=== PATIENT | male | born 1960 | race Two or more races ===

== ENCOUNTER 2024-04-05 17:49 | Inpatient (IN) | payer MEDICARE, OTHER ==
[~2024-04-05] VITALS: Ht 162.6 cm; Wt 66.0 kg
[2024-04-05 19:28] LABS: Basophils # (auto) 0.1 10 ^3/uL (0-0.2); Basophils % (auto) 0.9 % (0.0-2.0); Eosinophils # (auto) 0.3 10 ^3/uL (0-0.8); Eosinophils % (auto) 4.5 % (0.0-7.0); Hematocrit 35.7 % (41.0-53.0); Lymphocytes # (auto) 1.9 10 ^3/uL (0.4-5.4); Lymphocytes % (auto) 24.4 % (10.0-50.0); Mean Corpuscular Hemoglobin 30.3 pg (28.0-32.0); Mean Corpuscular Hgb Conc. 33.6 g/dL (32.0-36.0); Mean Corpuscular Volume 90.2 fL (80.0-100.0); Monocytes # (auto) 0.6 10 ^3/uL (0-1.3); Monocytes % (auto) 8.4 % (0.0-12.0); Neutrophils # (auto) 4.7 10 ^3/uL (1.6-8.6); Neutrophils % (auto) 61.8 % (37.0-80.0); Red Blood Cells 3.96 10^6/uL (4.5-5.90); Red Cell Distribution Width 13.5 % (11.8-14.3); White Blood Cell 7.6 10^3/uL (4.4-10.8)
[2024-04-05 20:00] VITALS: PULSE 76; RESP 16; O2SAT 96
[2024-04-05 20:07] LABS: Alanine Aminotransferase 25 U/L (7-40); Albumin 3.8 g/dL (3.2-4.8); Alkaline Phosphatase 86 U/L (46-116); Anion Gap 4 (5-15); Aspartate Aminotransferase 11 U/L (13-40); BUN/Creatinine Ratio 11.8 (10.0-20.0); Bilirubin, Total 0.3 mg/dL (0.2-1.0); Blood Urea Nitrogen 25 mg/dL (9-23); Calcium 9.1 mg/dL (8.7-10.4); Carbon Dioxide 26 mmol/L (20-30); Chloride 108 mmol/L (98-107); Glucose 146 mg/dL (74-106); Potassium 5.3 mmol/L (3.5-5.1); Sodium 138 mmol/L (136-145)
[2024-04-05 20:08] LABS: Total Protein 6.5 g/dL (5.7-8.2)
[2024-04-05 20:15] LABS: Urine Bacteria None Seen /hpf (None Seen)
[2024-04-05 20:21] LABS: Urine Blood Negative /uL (Negative); Urine Clarity Clear (Clear); Urine Color Light-Yellow (Yellow); Urine Protein, UAD TRACE (Negative); Urine Specific Gravity 1.013 (1.001-1.035); Urine Urobilinogen Normal (Negative); Urine WBC 1 /hpf (0 - 3); Urine pH 5.5 (5.0-9.0)
[2024-04-05] MEDS ORDERED: MORPHINE SULFATE INJ 2 MG/ml SYRG IV PRN (22:00)
[2024-04-05] MEDS ORDERED: ACETAMINOPHEN 325 MG TAB PO PRN (22:00)
[2024-04-05] MEDS ORDERED: DOCUSATE SOD 100 MG CAP PO PRN (22:00)
[2024-04-05] MEDS ORDERED: DEXTROSE (50%) 50ML SYRG IV PRN (22:00)
[2024-04-05] MEDS ORDERED: NITROGLYCERIN 0.4 MG SL TAB SL PRN (22:00)
[2024-04-05] MEDS ORDERED: ONDANSETRON HCL 4 MG/2 ML VIAL IV PRN (22:00)
[2024-04-05] MEDS: SODIUM CHLORIDE 0.9% 1,000 ML IV SCH (22:45)
[2024-04-06] MEDS: ACCU-CHEK COMFORT CURVE STRIP VI SCH ×3 (00:17→16:37)
[2024-04-06 05:18] LABS: Basophils # (auto) 0.1 10 ^3/uL (0-0.2); Basophils % (auto) 1.1 % (0.0-2.0); Eosinophils # (auto) 0.4 10 ^3/uL (0-0.8); Hematocrit 37.8 % (41.0-53.0); Lymphocytes # (auto) 1.5 10 ^3/uL (0.4-5.4); Lymphocytes % (auto) 21.7 % (10.0-50.0); Mean Corpuscular Hgb Conc. 34.5 g/dL (32.0-36.0); Mean Corpuscular Volume 89.9 fL (80.0-100.0); Monocytes # (auto) 0.6 10 ^3/uL (0-1.3); Monocytes % (auto) 7.9 % (0.0-12.0); Neutrophils # (auto) 4.5 10 ^3/uL (1.6-8.6); Neutrophils % (auto) 63.3 % (37.0-80.0); Red Blood Cells 4.21 10^6/uL (4.5-5.90); Red Cell Distribution Width 13.8 % (11.8-14.3); White Blood Cell 7.1 10^3/uL (4.4-10.8)
[2024-04-06 05:34] LABS: Alanine Aminotransferase 25 U/L (7-40); Albumin 3.9 g/dL (3.2-4.8); Alkaline Phosphatase 81 U/L (46-116); Anion Gap 8 (5-15); Aspartate Aminotransferase 15 U/L (13-40); BUN/Creatinine Ratio 11.1 (10.0-20.0); Bilirubin, Total 0.4 mg/dL (0.2-1.0); Blood Urea Nitrogen 20 mg/dL (9-23); Calcium 9.2 mg/dL (8.7-10.4); Carbon Dioxide 25 mmol/L (20-30); Chloride 107 mmol/L (98-107); Glucose 132 mg/dL (74-106); Phosphorus 3.6 mg/dL (2.4-5.1); Potassium 4.6 mmol/L (3.5-5.1); Sodium 140 mmol/L (136-145)
[2024-04-06 05:35] LABS: Total Protein 6.8 g/dL (5.7-8.2)
[2024-04-06 07:20] VITALS: PULSE 79; RESP 14; O2SAT 97
[2024-04-06 09:00] VITALS: BP 131/72; PULSE 85; RESP 20; TEMP 98.3; O2SAT 96
[2024-04-06 09:35] VITALS: BP 131/72; PULSE 85; RESP 20; TEMP 98.3; O2SAT 96
[2024-04-06 11:09] LABS: Protein, Urine 21.4 mg/dL (0.0-11.9)
[2024-04-06 11:11] LABS: Creatinine, Urine 25.98 mg/dL (30.0-125.0)
[2024-04-06] MEDS: SODIUM CHLORIDE 0.9% 1,000 ML IV SCH (12:00)
[2024-04-06 12:30] VITALS: BP 126/76; PULSE 83; RESP 18; TEMP 98.5; O2SAT 96
[2024-04-06] MEDS ORDERED: DEXTROSE (50%) 50ML SYRG IV PRN (13:15)
[2024-04-06] MEDS: InsuLIN REG 1unit/0.01ml Soln (100units/ml) SC SCH ×2 (16:37)
[2024-04-06 17:03] VITALS: BP 143/72; PULSE 80; RESP 20; TEMP 98.3; O2SAT 98
[2024-04-06] MEDS ORDERED: TAMS0.4C36 PO (17:19)
[2024-04-06] MEDS ORDERED: LISI10TA34 PO (17:19)
[2024-04-06] MEDS ORDERED: FLUO-126 PO (17:19)
[2024-04-06] MEDS ORDERED: OMEP-448 PO (17:19)
[2024-04-06] MEDS ORDERED: FINE10TA PO (17:19)
[2024-04-06] MEDS ORDERED: ATOR40TA52 PO (17:19)
[2024-04-06] MEDS ORDERED: AMLO1TAB23 PO (17:19)
[2024-04-06] MEDS ORDERED: TRAZ-227 PO (17:19)
[2024-04-06] MEDS ORDERED: INSU1INJ19 SC (17:26)
[2024-04-06 20:00] VITALS: O2SAT 98
[2024-04-06] MEDS: ATORVASTATIN 20 MG TAB PO SCH (21:14)
[2024-04-07] VITALS (8 sets, daily range): BP systolic 125–153; BP diastolic 68–82; PULSE 62–85; RESP 14–18; TEMP 97.4–98; O2SAT 93–98
[2024-04-07 06:50] LABS: Basophils # (auto) 0.1 10 ^3/uL (0-0.2); Basophils % (auto) 0.8 % (0.0-2.0); Eosinophils # (auto) 0.4 10 ^3/uL (0-0.8); Eosinophils % (auto) 4.8 % (0.0-7.0); Hematocrit 37.8 % (41.0-53.0); Hemoglobin 12.9 g/dL (13.5-17.5); Lymphocytes # (auto) 1.4 10 ^3/uL (0.4-5.4); Lymphocytes % (auto) 18.9 % (10.0-50.0); Mean Corpuscular Hemoglobin 30.7 pg (28.0-32.0); Mean Corpuscular Hgb Conc. 34.2 g/dL (32.0-36.0); Mean Corpuscular Volume 89.8 fL (80.0-100.0); Monocytes # (auto) 0.6 10 ^3/uL (0-1.3); Monocytes % (auto) 7.5 % (0.0-12.0); Neutrophils # (auto) 5.2 10 ^3/uL (1.6-8.6); Nucleated Red Blood Cells % 0.1 %; Red Cell Distribution Width 13.9 % (11.8-14.3); White Blood Cell 7.7 10^3/uL (4.4-10.8)
[2024-04-07 06:55] LABS: Anion Gap 7 (5-15); Carbon Dioxide 27 mmol/L (20-30); Chloride 105 mmol/L (98-107); Potassium 4.4 mmol/L (3.5-5.1); Sodium 139 mmol/L (136-145)
[2024-04-07 06:56] LABS: Calcium 9.4 mg/dL (8.7-10.4)
[2024-04-07 07:00] LABS: INR 0.98 (0.9-1.15); Partial Thromboplastin Time 28.7 SEC (24.5-34.5); Prothrombin Time 10.4 sec (9.3-11.8)
[2024-04-07 07:01] LABS: BUN/Creatinine Ratio 13.4 (10.0-20.0); Blood Urea Nitrogen 20 mg/dL (9-23); Glucose 126 mg/dL (74-106)
[2024-04-07] MEDS: ASPirin 81 mg TAB PO SCH (10:41)
[2024-04-07] MEDS ORDERED: ALFU1TAB15 PO (11:30)
[2024-04-07] MEDS ORDERED: ASPI-498 OR (11:30)
[2024-04-07] MEDS ORDERED: CETI-83 OR (11:30)
[2024-04-07] MEDS ORDERED: KETO2CRE4 EX (11:32)
[2024-04-07] MEDS ORDERED: CHOL20007 PO (11:32)
[2024-04-07] MEDS ORDERED: AZITHROMYCIN 250 MG TAB PO ONE (15:00)
[2024-04-08 01:00] VITALS: BP 126/74; PULSE 83; RESP 18; O2SAT 95
[2024-04-08 05:00] VITALS: BP 113/76; PULSE 76; RESP 17; TEMP 98.1; O2SAT 94
[2024-04-08] MEDS: AZITHROMYCIN 250 MG TAB PO SCH (08:31)
[2024-04-08 09:00] VITALS: BP 145/78; PULSE 84; RESP 14; TEMP 98.2; O2SAT 98
[2024-04-08 10:24] LABS: Chloride 104 mmol/L (98-107); Potassium 4.5 mmol/L (3.5-5.1); Sodium 136 mmol/L (136-145)
[2024-04-08 10:25] LABS: Anion Gap 6 (5-15); Carbon Dioxide 26 mmol/L (20-30)
[2024-04-08 10:26] LABS: Calcium 9.5 mg/dL (8.7-10.4)
[2024-04-08 10:30] LABS: Blood Urea Nitrogen 21 mg/dL (9-23); Glucose 189 mg/dL (74-106)
[2024-04-08 13:00] VITALS: BP 110/74; PULSE 90; RESP 16; TEMP 97.6; O2SAT 98
[2024-04-08 17:00] VITALS: BP 135/86; PULSE 68; RESP 18; TEMP 97.6; O2SAT 97
[2024-04-08 21:00] VITALS: BP 124/78; PULSE 89; RESP 18; TEMP 98.3; O2SAT 94
[2024-04-09 01:00] VITALS: BP 125/69; PULSE 80; RESP 18; TEMP 98.1; O2SAT 96
[2024-04-09 05:00] VITALS: BP 119/70; PULSE 77; RESP 18; O2SAT 94
[2024-04-09 05:31] LABS: Chloride 103 mmol/L (98-107); Potassium 3.9 mmol/L (3.5-5.1); Sodium 137 mmol/L (136-145)
[2024-04-09 05:32] LABS: Anion Gap 9 (5-15); Carbon Dioxide 25 mmol/L (20-30)
[2024-04-09 05:33] LABS: Calcium 9.3 mg/dL (8.7-10.4)
[2024-04-09 05:38] LABS: BUN/Creatinine Ratio 12.9 (10.0-20.0); Blood Urea Nitrogen 24 mg/dL (9-23); Glucose 140 mg/dL (74-106)
[2024-04-09 09:00] VITALS: BP 138/72; PULSE 78; RESP 18; TEMP 98; O2SAT 97
[2024-04-09 12:50] VITALS: BP_SYST 120; BP_SYST 141; BP_DIAS 72; BP_DIAS 79; PULSE 80; PULSE 83; RESP 18; RESP 20; TEMP 98.1; O2SAT 98
[2024-04-09 17:14] VITALS: BP 135/79; PULSE 87; RESP 20; TEMP 98; O2SAT 96
== END 2024-04-09 18:45 | disposition home or self-care (01) | DRG 70 ==
LOC: ER 17:49 → OVERFLOW 22:06 → WEST WING 04-06 09:06
PROVIDERS: ADMIT Internal Medicine Pulmonary Disease; ATTEND Internal Medicine
DX: G93.41 Metabolic encephalopathy (principal); N17.0 Acute kidney failure with tubular necrosis; I69.351 Hemiplegia and hemiparesis following cerebral infarction affecting right dominant side; E11.22 Type 2 diabetes mellitus with diabetic chronic kidney disease; E87.5 Hyperkalemia; I12.9 Hypertensive chronic kidney disease with stage 1 through stage 4 chronic kidney disease, or unspecified chronic kidney disease; J20.9 Acute bronchitis, unspecified; N18.32 Chronic kidney disease, stage 3b; F10.10 Alcohol abuse, uncomplicated; G40.209 Localization-related (focal) (partial) symptomatic epilepsy and epileptic syndromes with complex partial seizures, not intractable, without status epilepticus; Y90.9 Presence of alcohol in blood, level not specified; D64.9 Anemia, unspecified; N40.0 Benign prostatic hyperplasia without lower urinary tract symptoms; Z87.442 Personal history of urinary calculi; Z90.5 Acquired absence of kidney; Z79.4 Long term (current) use of insulin; Z83.3 Family history of diabetes mellitus; Z79.82 Long term (current) use of aspirin; Z79.899 Other long term (current) drug therapy; Z82.49 Family history of ischemic heart disease and other diseases of the circulatory system; I69.320 Aphasia following cerebral infarction
CPT/HCPCS: 36415; 70450; 70551; 71045; 76775; 80048; 80053; 81001; 82550; 82570; 82607; 82962; 83036; 83735; 84100; 84156; 84300; 84443; 84484; 85025; 85610; 85730; 93005; 95819; 97110; 97116; 97163; 97530; G0378; J1815

== ENCOUNTER → 2024-04-20 | Outpatient (CLI) | payer MEDICARE, OTHER ==
[~2024-04-20] MED LIST: ALFU1TAB15 PO; AMLO1TAB23 PO; ASPI-498 OR; ATOR40TA52 PO; CETI-83 OR; CHOL20007 PO; FINE10TA PO; FLUO-126 PO; INSU1INJ19 SC; KETO2CRE4 EX; LISI10TA34 PO; OMEP-448 PO; TAMS0.4C36 PO; TRAZ-227 PO
[2024-04-20 11:51] LABS: Anion Gap 4 (5-15); Carbon Dioxide 30 mmol/L (20-30); Chloride 104 mmol/L (98-107); Potassium 4.5 mmol/L (3.5-5.1); Sodium 138 mmol/L (136-145)
[2024-04-20 11:52] LABS: Calcium 9.5 mg/dL (8.7-10.4)
[2024-04-20 11:57] LABS: BUN/Creatinine Ratio 13.3 (10.0-20.0); Blood Urea Nitrogen 20 mg/dL (9-23); Glucose 127 mg/dL (74-106)
== END | disposition home or self-care (01) ==
LOC: LAB 10:37
PROVIDERS: ATTEND Internal Medicine
DX: E11.9 Type 2 diabetes mellitus without complications (principal); I10 Essential (primary) hypertension
CPT/HCPCS: 36415; 80048

== ENCOUNTER 2024-05-06 09:13 | Emergency (ER) | payer MEDICARE, OTHER ==
[~2024-05-06] VITALS: Ht 162.6 cm; Wt 65.4 kg
[~2024-05-06 09:13] MED LIST changes: -TAMS0.4C36 PO; +TAMS0.4C39 PO
[2024-05-06] MEDS: ACETAMINOPHEN 500 MG TAB PO ONE (10:16)
[2024-05-06] MEDS: ONDANSETRON HCL 4 MG/2 ML VIAL IM ONE (10:17)
[2024-05-06 10:31] LABS: Urine Bacteria None Seen /hpf (None Seen)
[2024-05-06 10:38] LABS: Basophils # (auto) 0.1 10 ^3/uL (0-0.2); Basophils % (auto) 0.8 % (0.0-2.0); Eosinophils # (auto) 0.1 10 ^3/uL (0-0.8); Eosinophils % (auto) 1.6 % (0.0-7.0); Hematocrit 42.8 % (41.0-53.0); Hemoglobin 14.2 g/dL (13.5-17.5); Lymphocytes # (auto) 1.1 10 ^3/uL (0.4-5.4); Lymphocytes % (auto) 15.8 % (10.0-50.0); Mean Corpuscular Hemoglobin 29.7 pg (28.0-32.0); Mean Corpuscular Hgb Conc. 33.2 g/dL (32.0-36.0); Mean Corpuscular Volume 89.5 fL (80.0-100.0); Monocytes # (auto) 0.7 10 ^3/uL (0-1.3); Monocytes % (auto) 9.5 % (0.0-12.0); Neutrophils # (auto) 5.2 10 ^3/uL (1.6-8.6); Neutrophils % (auto) 72.3 % (37.0-80.0); Platelet Count (auto) 264 10^3/uL (140-450); Red Blood Cells 4.78 10^6/uL (4.5-5.90); Red Cell Distribution Width 14.1 % (11.8-14.3); White Blood Cell 7.2 10^3/uL (4.4-10.8)
[2024-05-06 10:41] LABS: Urine Blood 1+ /uL (Negative); Urine Clarity Clear (Clear); Urine Protein, UAD 2+ (Negative); Urine Specific Gravity 1.012 (1.001-1.035); Urine Urobilinogen Normal (Negative); Urine WBC <1 /hpf (0 - 3)
[2024-05-06 10:43] LABS: Urine Color Light-Yellow (Yellow)
[2024-05-06 10:51] LABS: Chloride 103 mmol/L (98-107); Potassium 4.3 mmol/L (3.5-5.1); Sodium 135 mmol/L (136-145)
[2024-05-06 10:52] LABS: Anion Gap 6 (5-15); Carbon Dioxide 26 mmol/L (20-30)
[2024-05-06 10:53] LABS: Calcium 9.9 mg/dL (8.7-10.4)
[2024-05-06 10:57] LABS: BUN/Creatinine Ratio 11.2 (10.0-20.0); Blood Urea Nitrogen 18 mg/dL (9-23); Glucose 131 mg/dL (74-106)
[2024-05-06 11:56] LABS: COVID19 ANTIGEN SOFIA FIA POSITIVE (NEGATIVE)
[2024-05-06 11:57] LABS: Rapid Influenza A Negative (Negative); Rapid Influenza B Negative (Negative)
[2024-05-06] MEDS ORDERED: BENZ100C97 PO (12:08)
[2024-05-06] MEDS ORDERED: PROM1SOL4 PO (12:08)
[2024-05-06] MEDS ORDERED: ACET500T58 PO (12:08)
[2024-05-06] MEDS ORDERED: AZIT-43 PO (12:08)
[2024-05-06 12:15] VITALS: BP 116/71; PULSE 84; RESP 18; TEMP 99.4; O2SAT 96
== END 2024-05-06 12:11 | disposition home or self-care (01) ==
LOC: ER 09:13
DX: U07.1 COVID-19 (principal); E11.22 Type 2 diabetes mellitus with diabetic chronic kidney disease; I12.9 Hypertensive chronic kidney disease with stage 1 through stage 4 chronic kidney disease, or unspecified chronic kidney disease; N18.9 Chronic kidney disease, unspecified
CPT/HCPCS: 36415; 71046; 80048; 81001; 85025; 87426; 87804; 96372; 99284; J2405

== ENCOUNTER → 2024-05-30 | Outpatient (CLI) | payer MEDICARE ==
[~2024-05-30] MED LIST changes: +ACET500T58 PO; +AZIT-43 PO; +BENZ100C97 PO; +PROM1SOL4 PO
[2024-05-30 11:11] LABS: Basophils # (auto) 0.1 10 ^3/uL (0-0.2); Eosinophils # (auto) 0.2 10 ^3/uL (0-0.8); Monocytes # (auto) 0.7 10 ^3/uL (0-1.3)
[2024-05-30 11:15] LABS: Basophils % (auto) 0.9 % (0.0-2.0); Eosinophils % (auto) 2.6 % (0.0-7.0); Hematocrit 39.9 % (41.0-53.0); Hemoglobin 13.5 g/dL (13.5-17.5); Lymphocytes # (auto) 1.8 10 ^3/uL (0.4-5.4); Lymphocytes % (auto) 22.5 % (10.0-50.0); Mean Corpuscular Hemoglobin 29.9 pg (28.0-32.0); Mean Corpuscular Hgb Conc. 33.8 g/dL (32.0-36.0); Mean Corpuscular Volume 88.4 fL (80.0-100.0); Monocytes % (auto) 8.3 % (0.0-12.0); Neutrophils # (auto) 5.2 10 ^3/uL (1.6-8.6); Neutrophils % (auto) 65.7 % (37.0-80.0); Platelet Count (auto) 429 10^3/uL (140-450); Red Blood Cells 4.51 10^6/uL (4.5-5.90); Red Cell Distribution Width 14.7 % (11.8-14.3); White Blood Cell 7.9 10^3/uL (4.4-10.8)
[2024-05-30 11:33] LABS: Chloride 107 mmol/L (98-107); Potassium 4.7 mmol/L (3.5-5.1); Sodium 139 mmol/L (136-145)
[2024-05-30 11:34] LABS: Anion Gap 4 (5-15); Carbon Dioxide 28 mmol/L (20-30)
[2024-05-30 11:35] LABS: Calcium 9.4 mg/dL (8.7-10.4)
[2024-05-30 11:40] LABS: Blood Urea Nitrogen 22 mg/dL (9-23); Glucose 104 mg/dL (74-106)
[2024-05-30 11:45] LABS: Creatinine, Urine 87.11 mg/dL (30.0-125.0)
== END | disposition home or self-care (01) ==
LOC: LAB 10:27
PROVIDERS: ATTEND Internal Medicine
DX: E11.22 Type 2 diabetes mellitus with diabetic chronic kidney disease (principal); N18.31 Chronic kidney disease, stage 3a; E11.69 Type 2 diabetes mellitus with other specified complication; D64.9 Anemia, unspecified
CPT/HCPCS: 36415; 80048; 82043; 82570; 85025

== ENCOUNTER → 2024-09-24 | Outpatient (CLI) | payer MEDICARE ==
[2024-09-24 10:42] LABS: Urine Bacteria None Seen /hpf (None Seen)
[2024-09-24 11:08] LABS: Basophils # (auto) 0.1 10 ^3/uL (0-0.2); Basophils % (auto) 1.2 % (0.0-2.0); Eosinophils # (auto) 0.1 10 ^3/uL (0-0.8); Eosinophils % (auto) 1.7 % (0.0-7.0); Hematocrit 44.6 % (41.0-53.0); Lymphocytes # (auto) 1.6 10 ^3/uL (0.4-5.4); Mean Corpuscular Hemoglobin 29.6 pg (28.0-32.0); Mean Corpuscular Hgb Conc. 33.6 g/dL (32.0-36.0); Mean Corpuscular Volume 88.1 fL (80.0-100.0); Monocytes # (auto) 0.4 10 ^3/uL (0-1.3); Monocytes % (auto) 4.9 % (0.0-12.0); Neutrophils # (auto) 6.3 10 ^3/uL (1.6-8.6); Neutrophils % (auto) 73.2 % (37.0-80.0); Nucleated Red Blood Cells % 0.1 %; Platelet Count (auto) 309 10^3/uL (140-450); Red Blood Cells 5.06 10^6/uL (4.5-5.90); Red Cell Distribution Width 15.6 % (11.8-14.3); White Blood Cell 8.6 10^3/uL (4.4-10.8)
[2024-09-24 11:16] LABS: Alanine Aminotransferase 26 U/L (7-40); Albumin 4.5 g/dL (3.2-4.8); Alkaline Phosphatase 111 U/L (46-116); Anion Gap 6 (5-15); Aspartate Aminotransferase 17 U/L (13-40); BUN/Creatinine Ratio 13.8 (10.0-20.0); Bilirubin, Total 0.5 mg/dL (0.2-1.0); Blood Urea Nitrogen 20 mg/dL (9-23); Carbon Dioxide 29 mmol/L (20-31); Chloride 104 mmol/L (98-107); Sodium 139 mmol/L (136-145); Total Protein 7.8 g/dL (5.7-8.2)
[2024-09-24 11:17] LABS: Glucose 114 mg/dL (74-106)
[2024-09-24 11:54] LABS: Free T4 (Free Thyroxine) 1.2 ng/dL (0.89-1.76)
[2024-09-24 11:59] LABS: Urine Blood Negative /uL (Negative); Urine Clarity Clear (Clear); Urine Color Light-Yellow (Yellow); Urine Protein, UAD 1+ (Negative); Urine Specific Gravity 1.007 (1.001-1.035); Urine Squamous Epithelial Cell None Seen /hpf (<5); Urine Urobilinogen Normal (Negative); Urine WBC <1 /hpf (0 - 3)
[2024-09-24 12:04] LABS: Protein, Urine 81.9 mg/dL (1-14)
== END | disposition home or self-care (01) ==
LOC: LAB 10:26
PROVIDERS: ATTEND Internal Medicine
DX: I12.9 Hypertensive chronic kidney disease with stage 1 through stage 4 chronic kidney disease, or unspecified chronic kidney disease (principal); E11.22 Type 2 diabetes mellitus with diabetic chronic kidney disease; N18.30 Chronic kidney disease, stage 3 unspecified
CPT/HCPCS: 36415; 80053; 81001; 82043; 82306; 82607; 83036; 84156; 84439; 84443; 85025; 87902

== ENCOUNTER 2024-11-09 09:22 | Inpatient (IN) | payer MEDICARE, MEDICAID ==
[~2024-11-09] VITALS: Ht 162.6 cm; Wt 68.0 kg
--- NOTE | 2024-11-09 10:08 | ED.PDOC ---
History of Present Illness HPI Comments 64-year-old male came in because of headache right flank pain for about three days. Along with flank pain he has been having fever on and off with infrequent swelling of the right foot. Patient does have a history of hypertension diabetes CVA for which his right side along with his speech has been affected. Blood pressure on arrival was 148/77 heart rate of 84 with a blood sugar 132. Chief Complaint: Flank Pain Time Seen by MD: 09:30 Primary Care Provider: VINAY Reviewed Notes: Nurses Notes, Medications, Allergies Allergies: Coded Allergies: NO KNOWN ALLERGIES (Unverified , 04/05/24) Home Meds Active Scripts Acetaminophen (Acetaminophen) 500 Mg Tab, 500 MG PO QIDP for 10 Days, #40 TAB 0 Refills Prov:TAMI AREVALO NP 05/06/24 Promethazine-Dm (Promethazine Dm 6.25-15 mg/5Ml) 1 Anuradha Anuradha, 5 ML PO TIDP PRN for 10 Days, #150 ML 0 Refills Prov:TAMI AREVALO NP 05/06/24 Benzonatate (Benzonatate) 100 Mg Cap, 1 CAP PO TID for 10 Days, #30 CAP 0 Refills Prov:TAMI AREVALO NP 05/06/24 Azithromycin (Azithromycin) 250 Mg Tab, 250 MG PO DAILY MDD 500 for 5 Days, #6 TAB 0 Refills 2 TABLETS ORALLY ON DAY ONE, THEN 1 TABLET ORALLY DAILY FOR 4 DAYS Prov:TAMI AREVALO NP 05/06/24 Reported Medications Cholecalciferol (VITAMIN D3) 2,000 Unit Tab, 1 TAB PO DAILY, #30 TAB 5 Refills 04/07/24 Ketoconazole (Ketoconazole) 2 % Cre, 2 % EX, CRE 04/07/24 Cetirizine Hcl (EQ ALLERGY RELIEF) 10 Mg Tab, 10 MG OR, TAB 04/07/24 Alfuzosin Hydrochloride (ALFUZOSIN HCL ER) 10 Mg Tab, 10 MG PO, TAB 04/07/24 Aspirin (ASPIRIN 81) 81 Mg Tab, 81 MG OR, TAB 04/07/24 Insulin Glargine (Basaglar Kwikpen) 100 Unit/Ml Inj, SC DAILY, INJ 04/06/24 Omeprazole (Omeprazole Dr) 40 Mg Cap, 40 MG PO, CAP 04/06/24 Lisinopril (Lisinopril) 10 Mg Tab, 10 MG PO DAILY, MG 04/06/24 Atorvastatin Calcium (ATORVASTATIN CALCIUM) 40 Mg Tab, 1 TAB PO DAILY, TAB 04/06/24 Amlodipine Besylate (Amlodipine Besylate) 10 Mg Tab, 10 MG PO DAILY, TAB 04/06/24 Finerenone (Kerendia) 10 Mg Tab, 10 MG PO DAILY, TAB 04/06/24 Tamsulosin Hcl (Tamsulosin Hcl) 0.4 Mg Cap, 0.4 MG PO QPM, MG 04/06/24 Fluoxetine Hcl (Fluoxetine Hcl) 10 Mg Cap, 10 MG PO DAILY, MG 04/06/24 Trazodone Hcl (Trazodone Hcl) 50 Mg Tab, 50 MG PO HS, MG 04/06/24 Information Source: Relative (Sibling) Mode of Arrival: Wheelchair Severity: Moderate Timing: Days Duration: Since onset Past Medical History PAST MEDICAL HISTORY: CVA, DM, HTN Surgical History: Denies all surgeries Family History Family History: Reviewed,noncontributory to illness, No family hx of Cancer, No family hx of DM, No family hx of Heart penelope, No family hx of HTN, No family hx ofKidney penelope, No family hx of Liver penelope, No family hx of Lung penelope, No family hx of Stroke Social History Smoker: Non-Smoker Alcohol: Denies ETOH Use Drugs: Denies Drug Use Lives In: Home Constitutional: reports: fever; denies: chills, diaphoresis, fatigue, malaise, sweats, weakness, others EENTM: denies: blurred vision, double vision, ear bleeding, ear discharge, ear drainage, ear pain, ear ringing, eye pain, eye redness, hearing loss, mouth pain, mouth swelling, nasal discharge, nose bleeding, nose congestion, nose pain, photophobia, tearing, throat pain, throat swelling, voice changes, others Respiratory: denies: cough, hemoptysis, orthopnea, SOB at rest, shortness of breath, SOB with excertion, stridor, wheezing, others Cardiovascular: denies: chest pain, dizzy spells, diaphoresis, Dyspnea on exertion, edema, irregular heart beat, left arm pain, lightheadedness, palpitations, PND, syncope, others Gastrointestinal: denies: abdomen distended, abdominal pain, blood streaked bowels, constipated, diarrhea, dysphagia, difficulty swallowing, hematemesis, melena, nausea, poor appetite, poor fluid intake, rectal bleeding, rectal pain, vomiting, others Genitourinary: reports: flank pain (r); denies: burning, dysuria, frequency, hematuria, incontinence, penile discharge, penile sore, pain, testicle pain, testicle swelling, urgency, others Neurological: reports: headache; denies: dizziness, fainting, left sided numbness, left sided weakness, numbness, paresthesia, pre-existing deficit, right sided numbness, right sided weakness, seizure, speech problems, tingling, tremors, weakness, others Musculoskeletal: denies: back pain, gout, joint pain, joint swelling, muscle pain, muscle stiffness, neck pain, others Integumetry: denies: bruises, change in color, change in hair/nails, dryness, laceration, lesions, lumps, rash, wounds, others Allergic/Immunocompromised: denies: Difficulty Healing, Frequent Infections, Hives, Itching, others Hematologic/Lymphatic: denies: anemia, blood clots, easy bleeding, easy bruising, swollen glands, others Psychiatric: denies: anxiety, bipolar disorder, depression, hopeless, panic disorder, schizophrenia, sleepless, suicidal, others Physical Exam General Appearance: Moderate Distress HEENT: Normal ENT Inspection, Pharynx Normal, TMs Normal Neck: Full Range of Motion, Non-Tender, Normal, Normal Inspection Respiratory: Chest Non-Tender, Lungs Clear, No Accessory Muscle Use, No Respiratory Distress, Normal Breath Sounds Cardiovascular: No Edema, No JVD, No Murmur, No Gallop, Normal Peripheral Pulses, Regular Rate/Rhythm Breast Exam: Deferred Gastrointestinal: No Organomegaly, Non Tender, No Pulsatile Mass, Normal Bowel Sounds, Soft Genitalia: Deferred Pelvic: Deferred Rectal: Deferred Extremities: Swelling (Right foot) Musculoskeletal : Apperance: Normal Neurologic: Alert, Speech Problem Cerebellar Function: NOT DONE Reflexes: NOT DONE Skin: Dry, Normal Color, Warm Peripheral Pulses: 3+ Radial (R), 3+ Radial (L) Lymphatic: No Adenopathy Was a procedure done? Was a procedure done?: No Differential Dx Considerations may include: Anemia Electrolyte imbalance X-Ray, Labs, Meds, VS Lab Test 11/09/24 09:32 Range/Units POC Glucose 132 H 70-106 mg/dl Patient alert. Complaining of flank pain. Possible sepsis from urine. Blood sugar is within normal limits. Blood pressure slightly high. History of CVA. Reviewed his history. Family at bedside. Explained to the family. Continue to monitor. Time of 1ST Reevaluation: 10:02 Reevaluation 1ST: Unchanged Patient Education/Counseling: Diagnosis, Treatment, Prognosis Family Education/Counseling: No Family Present Departure 1 Departure Time of Disposition: 10:07 Impression: Primary Impression: Uncontrolled diabetes mellitus Qualified Codes: E13.65 - Other specified diabetes mellitus with hyperglycemia Additional Impression: Hypertension Qualified Codes: I10 - Essential (primary) hypertension Disposition: ADMITTED INPATIENT Admit to: Med Surg Condition: Guarded Critical Care Note Critical Care Time?: No Stability Stability form required: No Heart Score Heart Score: Heart Score Response (Comments) Value History Slightly Suspicious 0 EKG Normal 0 Age >65 2 Risk Factors >3 or Hx ASHD 2 Troponin Normal limit 0 Total 4 GABE WOLFE MD Nov 09, 2024 10:08
[2024-11-09 10:36] LABS: Urine Bacteria None Seen /hpf (None Seen)
[2024-11-09 10:52] LABS: Urine Blood TRACE /uL (Negative); Urine Clarity Clear (Clear); Urine Color Light-Yellow (Yellow); Urine Hyaline Cast FEW /lpf (0 - 2); Urine Mucus FEW (None Seen); Urine Protein, UAD 1+ (Negative); Urine Specific Gravity 1.015 (1.001-1.035); Urine Squamous Epithelial Cell FEW /hpf (<5); Urine Urobilinogen Normal (Negative); Urine WBC < 1 /HPF (0-3)
[2024-11-09 11:16] LABS: Basophils # (auto) 0.1 10 ^3/uL (0-0.2); Basophils % (auto) 0.9 % (0.0-2.0); Eosinophils # (auto) 0.1 10 ^3/uL (0-0.8); Eosinophils % (auto) 1.8 % (0.0-7.0); Hematocrit 43.9 % (41.0-53.0); Hemoglobin 14.6 g/dL (13.5-17.5); Lymphocytes # (auto) 1.7 10 ^3/uL (0.4-5.4); Lymphocytes % (auto) 20.9 % (10.0-50.0); Mean Corpuscular Hemoglobin 29.3 pg (28.0-32.0); Mean Corpuscular Hgb Conc. 33.2 g/dL (32.0-36.0); Mean Corpuscular Volume 88.1 fL (80.0-100.0); Monocytes # (auto) 0.5 10 ^3/uL (0-1.3); Monocytes % (auto) 6.1 % (0.0-12.0); Neutrophils # (auto) 5.8 10 ^3/uL (1.6-8.6); Neutrophils % (auto) 70.3 % (37.0-80.0); Platelet Count (auto) 309 10^3/uL (140-450); Red Blood Cells 4.98 10^6/uL (4.5-5.90); Red Cell Distribution Width 15.1 % (11.8-14.3); White Blood Cell 8.2 10^3/uL (4.4-10.8)
[2024-11-09 11:33] LABS: Chloride 103 mmol/L (98-107); Potassium 4.6 mmol/L (3.5-5.1); Sodium 139 mmol/L (136-145)
[2024-11-09 11:34] LABS: Anion Gap 8 (5-15); Calcium 10.1 mg/dL (8.7-10.4); Carbon Dioxide 28 mmol/L (20-31)
[2024-11-09 11:40] LABS: Blood Urea Nitrogen 24 mg/dL (9-23); Glucose 115 mg/dL (74-106)
[2024-11-09] MEDS ORDERED: ONDANSETRON HCL 4 MG/2 ML VIAL IV PRN (15:00)
[2024-11-09] MEDS ORDERED: DEXTROSE (50%) 50ML SYRG IV PRN (15:15)
--- NOTE | 2024-11-09 15:26 | DVH ---
CT ABDOMEN AND PELVIS WITHOUT CONTRAST CLINICAL HISTORY: pain TECHNIQUE: Multiple contiguous axial images of the abdomen and pelvis without intravenous contrast. The images were reformatted degenerate coronal and sagittal reconstructions. All CT scans at this medical facility are performed using dose modulation techniques as appropriate t o a performed exam including the following:Automated exposure control was utilized; adjustment of the MA and/or KV according to patient size; and use of iterative reconstruction technique. Radiation Dose Information: CT Dose: CTDI volume is 16 mGy. Dose-length product is 883 mGy*cm Comparison: None FINDINGS: Evaluation of the abdomen and pelvis is limited without intravenous contrast. There are postsurgical changes in the upper pole of the right kidney likely related partial nephrecto my. There is no evidence of nephrolithiasis or hydronephrosis. There is no discrete renal lesion. The liver, gallbladder, pancreas, adrenal glands, and spleen appear within normal limits. There is no gross evidence of abdominal lymphadenopathy. There is no free fluid or free air. The stomach grossly appears unremarkable. The small and large bowel loops demonstrate normal caliber . There are scattered diverticula in the distal colon without evidence of acute diverticulitis. A no rmal-appearing appendix is seen in the right lower quadrant abdomen. The abdominal aorta and IVC appear within normal limits. The prostate gland is enlarged. The bladder demonstrates circumferential wall thickening likely rela milady to chronic outlet obstruction. . There is no gross evidence of a pelvic mass. There is no free f luid collection. There is a small fat containing left inguinal hernia. Lung bases are clear. There is no acute osseous abnormality. IMPRESSION: 1. There is no acute process in the abdomen and pelvis. 2. Postsurgical changes related to partial right upper pole nephrectomy. 3. Prostatomegaly with likely chronic bladder outlet obstruction. 4. Distal colon diverticulosis without evidence of acute diverticulitis. HS:Y
--- NOTE | 2024-11-09 15:28 | DVH ---
CHEST RADIOGRAPH Indication: pain Technique: Single frontal view of the chest was obtained Comparison: XY CHEST PORTABLE on DOS: 04/05/24 FINDINGS: Lines and Tubes: None Lungs: No focal consolidation. Pleura: No effusion.No pneumothorax. Cardiomediastinal contours: Unremarkable Pulmonary vasculature: Within normal limits. Bones: No acute osseous abnormality. IMPRESSION: 1. No acute cardiopulmonary disease. HS:Y
--- NOTE | 2024-11-09 15:31 | DVH ---
LEFT lower extremity venous duplex Clinical History: swelling Comparison: None Technique: Duplex Doppler evaluation of the deep venous systems of both lower extremities from the common femora l veins to the popliteal veins including color Doppler and spectral/pulsed waveform analysis was perf ormed. Findings: LEFT SIDE: The common femoral vein demonstrates appropriate compressibility and waveform variability. There is compressibility/patency of the great saphenous vein at the proximal thigh. The femoral vein demonstrates appropriate compressibility and waveform variability. The deep femoral vein demonstrates appropriate compressibility and waveform variability. The popliteal vein demonstrates appropriate compressibility and waveform variability. There is normal compressibility at the tibioperoneal trunk. Impression: 1. No left femoropopliteal venous thrombosis. HS:Y
--- NOTE | 2024-11-09 15:49 | DVHHP2 ---
History of Present Illness Reason for Visit: Left-sided flank pain History of Present Illness Rick Woodard is a 64-year-old male with past medical history of hypertension, diabetes type 2, CVA with right-sided deficits in 2018, nephrolithiasis, CKD, and partial right nephrectomy who presents to the ED with left-sided flank pain, right lower extremity swelling, fever, headache, and back pain x2 days. Patient complains of back pain 8/10 intermittent and pressure- like. Patient reports no recent trauma or injury. Daughter at the bedside and states that he is wheelchair-bound. Patient denies any chest pain, shortness of breath, abdominal pain, nausea, vomiting, diarrhea, dizziness, chills, or dy suria symptoms. Cardiovascular: HTN [employer]: CVA Renal/: Chronic renal insuff Endocrine: Diabetes Past Medical History Nephrolithiasis Past Surgical History: Other (Partial right nephrectomy) Family History: DM, Hypertension, Other (Mom with hypertension and dad with diabetes) Smoke: No ALCOHOL: none Drugs: None Lives: with Family Domestic Violence: Neg Review of Systems Constitutional: Yes: Fever, Other (Headache) Musculoskeletal: back pain Skin: Other (Right lower extremity swelling) Allergies: Coded Allergies: NO KNOWN ALLERGIES (Unverified , 04/05/24) Medications Current Medications Medications Dose Ordered Sig/Lisa Route Start Time Stop Time Status Last Admin Dose Admin Acetaminophen/ Hydrocodone Bitart 1 tab Q4HP PRN PO 11/09/24 15:00 UNV Ondansetron HCl 4 mg Q4HP PRN IV 11/09/24 15:00 UNV Enoxaparin Sodium 30 mg DAILY SC 11/10/24 10:00 UNV Acetaminophen 650 mg Q6HP PRN PO 11/09/24 15:00 UNV Sodium Chloride 1,000 ml @ 100 mls/hr Q10H IV 11/09/24 15:15 UNV Exam Vital Signs Vital Signs Date Time Temp Pulse Resp B/P (MAP) Pulse Ox O2 Delivery O2 Flow Rate FiO2 11/09/24 09:30 98.2 84 16 148/77 (100) 96 General Appearance: Alert, Oriented X3, Cooperative, No acute distress HEENT: Atraumatic, PERRLA, EOMI, Mucous membr. moist/pink Respiratory: Normal air movement Cardiovascular: Normal S1, Normal S2, No murmurs Abdominal: Normal bowel sounds, Soft, No hepatospenomegaly, No masses Extremities: No cyanosis Neuro: Other (Right-sided weakness both right upper and right lower) Psych/Mental Status: Mental status NL Labs/Xrays Labs Test 11/09/24 10:46 11/09/24 09:36 11/09/24 09:32 Range/Units White Blood Count 8.2 4.4-10.8 10^3/uL Red Blood Count 4.98 4.5-5.90 10^6/uL Hemoglobin 14.6 13.5-17.5 g/dL Hematocrit 43.9 41.0-53.0 % Mean Corpuscular Volume 88.1 80.0-100.0 fL Mean Corpuscular Hemoglobin 29.3 28.0-32.0 pg Mean Corpuscular Hemoglobin Concent 33.2 32.0-36.0 g/dL Red Cell Distribution Width 15.1 H 11.8-14.3 % Platelet Count 309 140-450 10^3/uL Mean Platelet Volume 8.5 6.9-10.8 fL Neutrophils (%) (Auto) 70.3 37.0-80.0 % Lymphocytes (%) (Auto) 20.9 10.0-50.0 % Monocytes (%) (Auto) 6.1 0.0-12.0 % Eosinophils (%) (Auto) 1.8 0.0-7.0 % Basophils (%) (Auto) 0.9 0.0-2.0 % Neutrophils # (Auto) 5.8 1.6-8.6 10 ^3/uL Lymphocytes # (Auto) 1.7 0.4-5.4 10 ^3/uL Monocytes # (Auto) 0.5 0-1.3 10 ^3/uL Eosinophils # (Auto) 0.1 0-0.8 10 ^3/uL Basophils # (Auto) 0.1 0-0.2 10 ^3/uL Nucleated Red Blood Cells 0.0 % Sodium Level 139 136-145 mmol/L Potassium Level 4.6 3.5-5.1 mmol/L Chloride Level 103 98-107 mmol/L Carbon Dioxide Level 28 20-31 mmol/L Anion Gap 8 5-15 Blood Urea Nitrogen 24 H 9-23 mg/dL Creatinine 1.60 H 0.700-1.30 mg/dL Glomerular Filtration Rate Calc 47 >90 mL/min BUN/Creatinine Ratio 15.0 10.0-20.0 Serum Glucose 115 H 74-106 mg/dL Calcium Level 10.1 8.7-10.4 mg/dL Urine Color Light-yellow Yellow Urine Clarity Clear Clear Urine pH 6.0 5.0-9.0 Urine Specific [place] 1.015 1.001-1.035 Urine Protein 1+ H Negative Urine Ketones Negative Negative Urine Blood Trace H Negative /uL Urine Nitrite Negative Negative Urine Bilirubin Negative Negative Urine Urobilinogen Normal Negative mg/dL Urine Leukocyte Esterase Negative Negative /uL Urine RBC 1 0 - 3 /hpf Urine Microscopic WBC < 1 0-3 /HPF Urine Squamous Epithelial Cells Few <5 /hpf Urine Bacteria None seen None Seen /hpf Urine Hyaline Casts Few 0 - 2 /lpf Urine Mucus Few None Seen Urine Glucose Normal Normal mg/dL POC Glucose 132 H 70-106 mg/dl CT ABDOMEN AND PELVIS WITHOUT CONTRAST CLINICAL HISTORY: pain TECHNIQUE: Multiple contiguous axial images of the abdomen and pelvis without intravenous contrast. The images were reformatted degenerate coronal and sagittal reconstructions. All CT scans at this medical facility are performed using dose modulation techniques as appropriate to a performed exam including the following:Automated exposure control was utilized; adjustment of the MA and/or KV according to patient size; and use of iterative reconstruction technique. Radiation Dose Information: CT Dose: CTDI volume is 16 mGy. Dose-length product is 883 mGy*cm Comparison: None FINDINGS: Evaluation of the abdomen and pelvis is limited without intravenous contrast. There are postsurgical changes in the upper pole of the right kidney likely related partial nephrectomy. There is no evidence of nephrolithiasis or hydronephrosis. There is no discrete renal lesion. The liver, gallbladder, pancreas, adrenal glands, and spleen appear within normal limits. There is no gross evidence of abdominal lymphadenopathy. There is no free fluid or free air. The stomach grossly appears unremarkable. The small and large bowel loops demonstrate normal caliber. There are scattered diverticula in the distal colon without evidence of acute diverticulitis. A normal-appearing appendix is seen in the right lower quadrant abdomen. The abdominal aorta and IVC appear within normal limits. The prostate gland is enlarged. The bladder demonstrates circumferential wall thickening likely related to chronic outlet obstruction. . There is no gross evidence of a pelvic mass. There is no free fluid collection. There is a small fat containing left inguinal hernia. Lung bases are clear. There is no acute osseous abnormality. IMPRESSION: 1. There is no acute process in the abdomen and pelvis. 2. Postsurgical changes related to partial right upper pole nephrectomy. 3. Prostatomegaly with likely chronic bladder outlet obstruction. 4. Distal colon diverticulosis without evidence of acute diverticulitis. LEFT lower extremity venous duplex Clinical History: swelling Comparison: None Technique: Duplex Doppler evaluation of the deep venous systems of both lower extremities from the common femoral veins to the popliteal veins including color Doppler and spectral/pulsed waveform analysis was performed. Findings: LEFT SIDE: The common femoral vein demonstrates appropriate compressibility and waveform variability. There is compressibility/patency of the great saphenous vein at the proximal thigh. The femoral vein demonstrates appropriate compressibility and waveform variabi lity. The deep femoral vein demonstrates appropriate compressibility and waveform variability. The popliteal vein demonstrates appropriate compressibility and waveform variability. There is normal compressibility at the tibioperoneal trunk. Impression: 1. No left femoropopliteal venous thrombosis.. LEFT lower extremity venous duplex Clinical History: swelling Comparison: None Technique: Duplex Doppler evaluation of the deep venous systems of both lower extremities from the common femoral veins to the popliteal veins including color Doppler and spectral/pulsed waveform analysis was performed. Findings: LEFT SIDE: The common femoral vein demonstrates appropriate compressibility and waveform variability. There is compressibility/patency of the great saphenous vein at the proximal thigh. The femoral vein demonstrates appropriate compressibility and waveform variability. The deep femoral vein demonstrates appropriate compressibility and waveform variability. The popliteal vein demonstrates appropriate compressibility and waveform variability. There is normal compressibility at the tibioperoneal trunk. Impression: 1. No left femoropopliteal venous thrombosis. ORDERING PHYSICIAN: ÁNGEL YAN PROCEDURE(s): RLDVT - RT Lower DVT REASON: r/o dvt ORDER NUMBER(s): [id number], ACCESSION NUMBER(s): [id number] CLINICAL HISTORY: Rule out DVT. Right lower extremity pain. COMPARISON: No prior right lower extremity venous duplex exam. TECHNIQUE: Compression evaluation and color doppler evaluation of the deep veins of the right lower extremity was performed. Evaluation for augmentation and flow characteristics with doppler pulse wave imaging was performed.FINDINGS: This examination demonstrates normal compression, augmentation, and phasic flow of the right lower extremity. No evidence for echogenic thrombus within the right common femoral, femoral, and popliteal veins. The posterior tibial veins demonstrated normal compression and color flow at the level of the calf. IMPRESSION: There is no evidence for DVT in the right lower extremity. Assessment/Plan Assessment/Plan Assessment Intractable left sided flank pain RONNI Patient wheelchair-bound History of hypertension History of diabetes type 2 History of CVA with right-sided deficits that occurred in 2018 History of nephrolithiasis History of CKD Plan Admit to [facility] IV fluids UA Chest x-ray ordered Ultrasound venous right lower extremity Lovenox BNP ordered CT abdomen and pelvis ordered Ultrasound left kidney ordered Antiemetics Pain management Home medications reconciled Diet PSA flomax finasteride Plan discussed with: Patient, Daughter My Orders Orders - ÁNGEL YAN Procedure Category Date Status Time Admit ADMIT 11/09/24 Transmitted 14:47 Allergies ELIZABETH 11/09/24 In Process 14:47 Code Status CODE 11/09/24 Transmitted 14:47 Hydrocodone-Acet PHA 11/09/24 Logged 5/325mg Tab ([place] 15:00 Ondansetron Hcl PHA 11/09/24 Logged (Zofran) 15:00 Complete Blood Count LAB 11/10/24 Verified 04:00 Comprehensive LAB 11/10/24 Verified Metabolic Panel 04:00 Cardiac DIET 11/09/24 Transmitted Diet-2gna,Lofat,Lochol Dinner Enoxaparin Sodium PHA 11/10/24 Logged (Lovenox) 10:00 Acetaminophen Tablet PHA 11/09/24 Logged (Tylenol Tablet) 15:00 Chest Xray 1 View XY 11/09/24 Taken 14:47 Lt Lower Dvt US 11/09/24 Logged 14:47 Ct Ab Pel Wo Con-No CT 11/09/24 Taken Oral Or Iv 14:47 B-Type Natriuretic LAB 11/09/24 Transmitted Peptide 15:10 NS PHA 11/09/24 Transmitted 15:15 Date of Service: Nov 09, 2024 Billing Provider: ÁNGEL YAN Common Visit Codes: [id number] INP/OBS CARE (HIGH) ÁNGEL YAN Nov 09, 2024 15:49
[2024-11-09 15:54] VITALS: PULSE 82; RESP 16; O2SAT 96
--- NOTE | 2024-11-09 15:54 | DVH ---
RENAL ULTRASOUND CLINICAL HISTORY: left flank pain TECHNIQUE: Multiple ultrasound images of the kidneys and bladder were obtained. COMPARISON: US KIDNEY on DOS: 04/06/24 FINDINGS: The right kidney measures 10 cm in length. The left kidney measures 8.9 cm. The kidneys demonstrate a ppropriate echotexture without evidence of a discrete renal lesion, nephrolithiasis or hydronephrosis . Bladder appears within normal limits with prevoid volume measuring 151 cc patient was unable to void at the site of the scanning. IMPRESSION: 1. There is no sonographic evidence of nephrolithiasis or hydronephrosis. HS:Y
--- NOTE | 2024-11-09 15:58 | DVH ---
CLINICAL HISTORY: Rule out DVT. Right lower extremity pain. COMPARISON: No prior right lower extremity venous duplex exam. TECHNIQUE: Compression evaluation and color doppler evaluation of the deep veins of the right lower e xtremity was performed. Evaluation for augmentation and flow characteristics with doppler pulse wave imaging was performed.FINDINGS: This examination demonstrates normal compression, augmentation, and phasic flow of the right lower extremity. No evidence for echogenic thrombus within the right common femoral, femoral, and popliteal veins. The posterior tibial veins demonstrated normal compression and color flow at the level of the calf. IMPRESSION: There is no evidence for DVT in the right lower extremity.
[2024-11-09] MEDS: ACCU-CHEK COMFORT CURVE STRIP VI SCH (18:19)
[2024-11-09] MEDS: InsuLIN REG 1unit/0.01ml Soln (100units/ml) SC SCH (18:24)
[2024-11-09] MEDS: FINASTERIDE 5 MG TAB PO ONE (18:26)
[2024-11-09] MEDS: TAMSULOSIN HYDROCHLORIDE 0.4 MG CAP PO SCH (18:26)
[2024-11-09] MEDS: SODIUM CHLORIDE 0.9% 1,000 ML IV SCH (19:00)
[2024-11-09 19:25] VITALS: PULSE 76; RESP 18; O2SAT 97
[2024-11-09 21:40] VITALS: BP 114/64; PULSE 72; RESP 17; TEMP 97.6; O2SAT 97
[2024-11-10] VITALS (7 sets, daily range): BP systolic 115–169; BP diastolic 55–97; PULSE 75–82; RESP 16–18; TEMP 97.3–98.5; O2SAT 95–100
[2024-11-10] MEDS: ACETAMINOPHEN 325 MG TAB PO PRN (06:29)
[2024-11-10 07:49] LABS: Basophils # (auto) 0.1 10 ^3/uL (0-0.2); Basophils % (auto) 0.7 % (0.0-2.0); Eosinophils # (auto) 0.3 10 ^3/uL (0-0.8); Eosinophils % (auto) 3.4 % (0.0-7.0); Hematocrit 43.8 % (41.0-53.0); Hemoglobin 14.2 g/dL (13.5-17.5); Lymphocytes # (auto) 1.9 10 ^3/uL (0.4-5.4); Lymphocytes % (auto) 24.1 % (10.0-50.0); Mean Corpuscular Hemoglobin 28.9 pg (28.0-32.0); Mean Corpuscular Hgb Conc. 32.5 g/dL (32.0-36.0); Monocytes # (auto) 0.5 10 ^3/uL (0-1.3); Monocytes % (auto) 6.5 % (0.0-12.0); Neutrophils # (auto) 5.1 10 ^3/uL (1.6-8.6); Neutrophils % (auto) 65.3 % (37.0-80.0); Nucleated Red Blood Cells % 0.1 %; Platelet Count (auto) 308 10^3/uL (140-450); Red Blood Cells 4.92 10^6/uL (4.5-5.90); Red Cell Distribution Width 15.1 % (11.8-14.3); White Blood Cell 7.8 10^3/uL (4.4-10.8)
[2024-11-10 08:12] LABS: Alanine Aminotransferase 25 U/L (7-40); Albumin 4.2 g/dL (3.2-4.8); Alkaline Phosphatase 101 U/L (46-116); Anion Gap 8 (5-15); Aspartate Aminotransferase 16 U/L (13-40); BUN/Creatinine Ratio 14.3 (10.0-20.0); Calcium 9.4 mg/dL (8.7-10.4); Carbon Dioxide 25 mmol/L (20-31); Chloride 107 mmol/L (98-107); Potassium 4.3 mmol/L (3.5-5.1); Sodium 140 mmol/L (136-145); Total Protein 7.1 g/dL (5.7-8.2)
[2024-11-10 08:13] LABS: Bilirubin, Total 0.4 mg/dL (0.2-1.0); Blood Urea Nitrogen 24 mg/dL (9-23); Glucose 118 mg/dL (74-106)
[2024-11-10] MEDS: FINASTERIDE 5 MG TAB PO SCH (09:53)
[2024-11-10] MEDS: ENOXAPARIN SOD 40 MG/0.4 ML SYRINGE SC SCH (09:53)
[2024-11-10] MEDS: HYDROcodone-ACET 5/325MG TAB PO PRN (09:53)
[2024-11-10] MEDS ORDERED: ENOXAPARIN SOD 30 MG/0.3 ML SYRINGE SC SCH (10:00)
--- NOTE | 2024-11-10 12:54 | DVHPN2 ---
Reviewed: Care Plan, H&P, Labs, Medications, Previous Orders, Radiology Changes from previous H/P or p: No Changes Musculoskeletal: back pain Skin: Other (Right lower extremity swelling) Objective Vitals Vital Signs Date Time Temp Pulse Resp B/P (MAP) Pulse Ox O2 Delivery O2 Flow Rate FiO2 11/10/24 09:14 98.0 80 16 115/55 (75) 96 98.0 11/10/24 08:00 Room Air* 0 21 Intake/Output Intake and Output 11/10/24 07:00 Intake Total 1240 ml Output Total 125 ml Balance 1115 ml Intake Oral 240 ml IV Total 1000 ml Output Urine Total 125 ml Medications Current Medications Medications Dose Ordered Sig/Lisa Route Start Time Stop Time Status Last Admin Dose Admin Acetaminophen/ Hydrocodone Bitart 1 tab Q4HP PRN PO 11/09/24 15:00 11/10/24 09:53 1 TAB Ondansetron HCl 4 mg Q4HP PRN IV 11/09/24 15:00 Enoxaparin Sodium 30 mg DAILY SC 11/10/24 10:00 UNV Acetaminophen 650 mg Q6HP PRN PO 11/09/24 15:00 11/10/24 06:29 650 MG Sodium Chloride 1,000 ml @ 100 mls/hr Q10H IV 11/09/24 15:15 11/10/24 06:13 100 MLS/HR Diagnostic Test (Pha) 1 strip ACHS 11/09/24 17:00 11/10/24 06:00 1 STRIP Insulin Human Regular ACHS SC 11/09/24 17:00 11/09/24 18:24 6 UNITS Dextrose 50 ml UD PRN IV 11/09/24 15:15 Enoxaparin Sodium 40 mg DAILY SC 11/10/24 10:00 11/10/24 09:53 40 MG Tamsulosin HCl 0.4 mg QPM PO 11/09/24 18:00 11/09/24 18:26 0.4 MG Finasteride 5 mg DAILY PO 11/10/24 10:00 11/10/24 09:53 5 MG Laboratory Results Laboratory Tests 11/10/24 06:36 Chemistry Test 11/10/24 06:36 Albumin 4.2 g/dL (3.2-4.8) Calcium Level 9.4 mg/dL (8.7-10.4) Total Protein 7.1 g/dL (5.7-8.2) LFT Test 11/10/24 06:36 Alanine Aminotransferase (ALT) 25 U/L (7-40) Alkaline Phosphatase 101 U/L (46-116) Aspartate Amino Transferase (AST) 16 U/L (13-40) Total Bilirubin 0.4 mg/dL (0.2-1.0) Urinalysis Test 11/09/24 09:36 Urine Color Light-yellow (Yellow) Urine Clarity Clear (Clear) Urine pH 6.0 (5.0-9.0) Urine Specific [place] 1.015 (1.001-1.035) Urine Protein 1+ (Negative) H Urine Ketones Negative (Negative) Urine Blood Trace /uL (Negative) H Urine Nitrite Negative (Negative) Urine Bilirubin Negative (Negative) Urine Urobilinogen Normal mg/dL (Negative) Urine Leukocyte Esterase Negative /uL (Negative) Urine RBC 1 /hpf (0 - 3) Urine Microscopic WBC < 1 /HPF (0-3) Urine Squamous Epithelial Cells Few /hpf (<5) Urine Bacteria None seen /hpf (None Seen) Urine Hyaline Casts Few /lpf (0 - 2) Urine Mucus Few (None Seen) Urine Glucose Normal mg/dL (Normal) Labs and/or images reviewed: Labs reviewed by me, Image(s) reviewed by me Assessment/Plan Assessment/Plan Intractable left sided flank pain RONNI Patient wheelchair-bound Hypotension Diabetes type 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
[2024-11-11 05:00] VITALS: BP 128/55; PULSE 76; RESP 18; TEMP 98; O2SAT 97
[2024-11-11 08:00] VITALS: PULSE 78; RESP 18; O2SAT 98
[2024-11-11 09:00] VITALS: BP 117/46; PULSE 74; RESP 18; TEMP 97.7; O2SAT 96
--- NOTE | 2024-11-11 09:29 | DVHPN2 ---
Reviewed: Care Plan, H&P, Labs, Medications, Previous Orders, Radiology Changes from previous H/P or p: No Changes Musculoskeletal: back pain Skin: Other (Right lower extremity swelling) Objective Vitals Vital Signs Date Time Temp Pulse Resp B/P (MAP) Pulse Ox O2 Delivery O2 Flow Rate FiO2 11/11/24 05:00 98.0 76 18 128/55 (79) 97 98.0 11/10/24 20:00 Room Air* 0 21 Intake/Output Intake and Output 11/11/24 07:00 Intake Total 3100 ml Output Total 4350 ml Balance -1250 ml Intake Oral 1100 ml IV Total 2000 ml Output Urine Total 4350 ml # Bowel Movements 1 Medications Current Medications Medications Dose Ordered Sig/Lisa Route Start Time Stop Time Status Last Admin Dose Admin Acetaminophen/ Hydrocodone Bitart 1 tab Q4HP PRN PO 11/09/24 15:00 11/10/24 18:44 1 TAB Ondansetron HCl 4 mg Q4HP PRN IV 11/09/24 15:00 Enoxaparin Sodium 30 mg DAILY SC 11/10/24 10:00 UNV Acetaminophen 650 mg Q6HP PRN PO 11/09/24 15:00 11/10/24 06:29 650 MG Sodium Chloride 1,000 ml @ 100 mls/hr Q10H IV 11/09/24 15:15 11/11/24 06:18 100 MLS/HR Diagnostic Test (Pha) 1 strip ACHS 11/09/24 17:00 11/11/24 06:10 1 STRIP Insulin Human Regular ACHS SC 11/09/24 17:00 11/11/24 06:10 2 UNITS Dextrose 50 ml UD PRN IV 11/09/24 15:15 Enoxaparin Sodium 40 mg DAILY SC 11/10/24 10:00 11/10/24 09:53 40 MG Tamsulosin HCl 0.4 mg QPM PO 11/09/24 18:00 11/10/24 18:43 0.4 MG Finasteride 5 mg DAILY PO 11/10/24 10:00 11/10/24 09:53 5 MG Laboratory Results Laboratory Tests 11/10/24 06:36 Urinalysis Test 11/09/24 09:36 Urine Color Light-yellow (Yellow) Urine Clarity Clear (Clear) Urine pH 6.0 (5.0-9.0) Urine Specific [place] 1.015 (1.001-1.035) Urine Protein 1+ (Negative) H Urine Ketones Negative (Negative) Urine Blood Trace /uL (Negative) H Urine Nitrite Negative (Negative) Urine Bilirubin Negative (Negative) Urine Urobilinogen Normal mg/dL (Negative) Urine Leukocyte Esterase Negative /uL (Negative) Urine RBC 1 /hpf (0 - 3) Urine Microscopic WBC < 1 /HPF (0-3) Urine Squamous Epithelial Cells Few /hpf (<5) Urine Bacteria None seen /hpf (None Seen) Urine Hyaline Casts Few /lpf (0 - 2) Urine Mucus Few (None Seen) Urine Glucose Normal mg/dL (Normal) Labs and/or images reviewed: Labs reviewed by me, Image(s) reviewed by me Assessment/Plan Assessment/Plan Intractable left sided flank pain RONNI Vs CKD 3 Patient wheelchair-bound Hypotension Uncontrolled Diabetes type 2 History of CVA with right-sided deficits 2017, had rehab only for one month secondary to lack of insurance, patient is willing to go to rehab center now for improvement of the movements History of nephrolithiasis CKD BPH: Flomax History of partial right nephrectomy sec to large kidney stone History of kidney stones Left lower extremity swelling: DVT ruled out bilateral lower extremities CT abdomen pelvis without contrast negative Patient lives with his daughter Bonita [phone] who is at the bedside Plan discussed with: Patient Date of Service: Nov 11, 2024 Billing Provider: COLE MARTIN MD Common Visit Codes: [id number] INP/OBS CARE(HIGH) COLE MARTIN MD Nov 11, 2024 09:29
--- NOTE | 2024-11-11 09:31 | DVHINCON2 ---
Date of service: Nov 11, [address] Mihir Whitlock Reason for Consultation Elevated creatinine History of Present Illness This is a 64-year-old male with history of CKD stage IIIA secondary to diabetic nephropathy, type 2 diabetes with retinopathy, history of CVA with right-sided weakness, hypertension, nephrolithiasis presenting to the emergency room because of right lower extremity swelling and flank pain. Nephrology has been consulted because of an elevated creatinine. No baseline to compare with. GFR here in the hospital has been stable. Patient did have a renal ultrasound with no acute abnormalities. CT of the abdomen showing mild prostatomegaly with chronic outlet obstruction. Patient is seen and examined at bedside. . Daughter at bedside. Past Medical History As stated above Past Surgical History Partial right nephrectomy Family History: FH: diabetes mellitus G8 FATHER Hypertension G8 MOTHER Family History Positive for diabetes and hypertension Social History No active history of smoking, alcohol or drug abuse Allergies: Coded Allergies: NO KNOWN ALLERGIES (Unverified , 04/05/24) Home Meds Active Scripts Acetaminophen (Acetaminophen) 500 Mg Tab, 500 MG PO QIDP for 10 Days, #40 TAB 0 Refills Prov:TAMI AREVALO NP 05/06/24 Promethazine-Dm (Promethazine Dm 6.25-15 mg/5Ml) 1 Anuradha Anuradha, 5 ML PO TIDP PRN for 10 Days, #150 ML 0 Refills Prov:TAMI AREVALO NP 05/06/24 Benzonatate (Benzonatate) 100 Mg Cap, 1 CAP PO TID for 10 Days, #30 CAP 0 Refills Prov:TAMI AREVALO NP 05/06/24 Azithromycin (Azithromycin) 250 Mg Tab, 250 MG PO DAILY MDD 500 for 5 Days, #6 TAB 0 Refills 2 TABLETS ORALLY ON DAY ONE, THEN 1 TABLET ORALLY DAILY FOR 4 DAYS Prov:TAMI AREVALO NP 05/06/24 Reported Medications Cholecalciferol (VITAMIN D3) 2,000 Unit Tab, 1 TAB PO DAILY, #30 TAB 5 Refills 04/07/24 Ketoconazole (Ketoconazole) 2 % Cre, 2 % EX, CRE 04/07/24 Aspirin (ASPIRIN 81) 81 Mg Tab, 81 MG OR, TAB 04/07/24 Insulin Glargine (Basaglar Kwikpen) 100 Unit/Ml Inj, SC DAILY, INJ 04/06/24 Omeprazole (Omeprazole Dr) 40 Mg Cap, 40 MG PO, CAP 04/06/24 Lisinopril (Lisinopril) 10 Mg Tab, 10 MG PO DAILY, MG 04/06/24 Atorvastatin Calcium (ATORVASTATIN CALCIUM) 40 Mg Tab, 1 TAB PO DAILY, TAB 04/06/24 Amlodipine Besylate (Amlodipine Besylate) 10 Mg Tab, 10 MG PO DAILY, TAB 04/06/24 Finerenone (Kerendia) 10 Mg Tab, 10 MG PO DAILY, TAB 04/06/24 Tamsulosin Hcl (Tamsulosin Hcl) 0.4 Mg Cap, 0.4 MG PO QPM, MG 04/06/24 Fluoxetine Hcl (Fluoxetine Hcl) 10 Mg Cap, 10 MG PO DAILY, MG 04/06/24 Trazodone Hcl (Trazodone Hcl) 50 Mg Tab, 50 MG PO HS, MG 04/06/24 Discontinued Reported Medications Cetirizine Hcl (EQ ALLERGY RELIEF) 10 Mg Tab, 10 MG OR, TAB 04/07/24 Alfuzosin Hydrochloride (ALFUZOSIN HCL ER) 10 Mg Tab, 10 MG PO, TAB 04/07/24 Current Medications Current Medications Medications (Trade) Dose Ordered Sig/Lisa Route PRN Reason Start Time Stop Time Status Last Admin Enoxaparin Sodium (Lovenox) 30 mg DAILY SC 11/10/24 10:00 UNV Enoxaparin Sodium (Lovenox) 40 mg DAILY SC 11/10/24 10:00 11/10/24 09:53 Finasteride (Proscar Tablet) 5 mg DAILY PO 11/10/24 10:00 11/10/24 09:53 Review of Systems 12 point review of system negative except as stated in the HPI Vital Signs Vital Signs Date Time Temp Pulse Resp B/P (MAP) Pulse Ox O2 Delivery O2 Flow Rate FiO2 11/11/24 05:00 98.0 76 18 128/55 (79) 97 98.0 11/10/24 20:00 Room Air* 0 21 Physical Exam Alert and awake HEENT: Normocephalic, no JVD Lungs: Bilateral good air entry CVS: S1, S2 regular rate rhythm Abdomen: Soft, bowel sounds present CLOTH BOOKER: Right-sided weakness Extremities: No edema Labs/Diagnostic Data Labs Test 11/11/24 05:39 11/10/24 06:36 11/09/24 16:52 11/09/24 10:46 Range/Units POC Glucose 144 H 70-106 mg/dl White Blood Count 7.8 4.4-10.8 10^3/uL Red Blood Count 4.92 4.5-5.90 10^6/uL Hemoglobin 14.2 13.5-17.5 g/dL Hematocrit 43.8 41.0-53.0 % Mean Corpuscular Volume 89.0 80.0-100.0 fL Mean Corpuscular Hemoglobin 28.9 28.0-32.0 pg Mean Corpuscular Hemoglobin Concent 32.5 32.0-36.0 g/dL Red Cell Distribution Width 15.1 H 11.8-14.3 % Platelet Count 308 140-450 10^3/uL Mean Platelet Volume 8.8 6.9-10.8 fL Neutrophils (%) (Auto) 65.3 37.0-80.0 % Lymphocytes (%) (Auto) 24.1 10.0-50.0 % Monocytes (%) (Auto) 6.5 0.0-12.0 % Eosinophils (%) (Auto) 3.4 0.0-7.0 % Basophils (%) (Auto) 0.7 0.0-2.0 % Neutrophils # (Auto) 5.1 1.6-8.6 10 ^3/uL Lymphocytes # (Auto) 1.9 0.4-5.4 10 ^3/uL Monocytes # (Auto) 0.5 0-1.3 10 ^3/uL Eosinophils # (Auto) 0.3 0-0.8 10 ^3/uL Basophils # (Auto) 0.1 0-0.2 10 ^3/uL Nucleated Red Blood Cells 0.1 % Sodium Level 140 136-145 mmol/L Potassium Level 4.3 3.5-5.1 mmol/L Chloride Level 107 98-107 mmol/L Carbon Dioxide Level 25 20-31 mmol/L Anion Gap 8 5-15 Blood Urea Nitrogen 24 H 9-23 mg/dL Creatinine 1.68 H 0.700-1.30 mg/dL Glomerular Filtration Rate Calc 45 >90 mL/min BUN/Creatinine Ratio 14.3 10.0-20.0 Serum Glucose 118 H 74-106 mg/dL Calcium Level 9.4 8.7-10.4 mg/dL Total Bilirubin 0.4 0.2-1.0 mg/dL Aspartate Amino Transferase (AST) 16 13-40 U/L Alanine Aminotransferase (ALT) 25 7-40 U/L Alkaline Phosphatase 101 46-116 U/L Total Protein 7.1 5.7-8.2 g/dL Albumin 4.2 3.2-4.8 g/dL Prostate Specific Antigen 3.33 0.0-4.0 ng/mL Hemoglobin A1c 7.5 H <5.7 % A1C B-Type Natriuretic Peptide 9.87 0-100 pg/mL Test 11/09/24 09:36 Range/Units Urine Color Light-yellow Yellow Urine Clarity Clear Clear Urine pH 6.0 5.0-9.0 Urine Specific [place] 1.015 1.001-1.035 Urine Protein 1+ H Negative Urine Ketones Negative Negative Urine Blood Trace H Negative /uL Urine Nitrite Negative Negative Urine Bilirubin Negative Negative Urine Urobilinogen Normal Negative mg/dL Urine Leukocyte Esterase Negative Negative /uL Urine RBC 1 0 - 3 /hpf Urine Microscopic WBC < 1 0-3 /HPF Urine Squamous Epithelial Cells Few <5 /hpf Urine Bacteria None seen None Seen /hpf Urine Hyaline Casts Few 0 - 2 /lpf Urine Mucus Few None Seen Urine Glucose Normal Normal mg/dL Assessment CKD stage IIIA secondary to diabetic nephropathy Type 2 diabetes with its complications Hypertension History of CVA with right-sided weakness BPH Proteinuria Plan/Recommendation GFR stable. Renal ultrasound with no acute abnormalities. Stable from renal standpoint for discharge. Follow up in Nephrology Clinic in 1 month. Discussed with daughter at bedside. Plan discussed with: Patient, Daughter ARELI GODINEZ MD Nov 11, 2024 09:31
[2024-11-11 13:00] VITALS: BP 136/77; PULSE 83; RESP 18; TEMP 98; O2SAT 96
[2024-11-11 17:00] VITALS: BP 148/73; PULSE 81; RESP 16; TEMP 97.9; O2SAT 97
[2024-11-11 20:51] VITALS: BP 132/74; PULSE 77; RESP 20; TEMP 98.2; O2SAT 94
[2024-11-12 01:00] VITALS: BP 135/77; PULSE 75; RESP 20; TEMP 98.3; O2SAT 93
[2024-11-12 02:27] LABS: COVID19 ANTIGEN SOFIA FIA NEGATIVE (NEGATIVE)
[2024-11-12 05:00] VITALS: BP 141/70; PULSE 70; RESP 20; TEMP 98; O2SAT 95
[2024-11-12 09:00] VITALS: BP 135/79; PULSE 71; RESP 14; TEMP 97.7; O2SAT 97
--- NOTE | 2024-11-12 09:09 | DVHPN2 ---
Reviewed: Care Plan, H&P, Labs, Medications, Previous Orders, Radiology Changes from previous H/P or p: No Changes Musculoskeletal: back pain Skin: Other (Right lower extremity swelling) Objective Vitals Vital Signs Date Time Temp Pulse Resp B/P (MAP) Pulse Ox O2 Delivery O2 Flow Rate FiO2 11/12/24 05:00 98.0 70 20 141/70 (93) 95 98.0 11/11/24 20:00 Room Air* 0 21 Intake/Output Intake and Output 11/12/24 07:00 Intake Total 4240 ml Output Total 1525 ml Balance 2715 ml Intake Oral 3510 ml IV Total 730 ml Output Urine Total 1525 ml # Bowel Movements 1 Medications Current Medications Medications Dose Ordered Sig/Lisa Route Start Time Stop Time Status Last Admin Dose Admin Acetaminophen/ Hydrocodone Bitart 1 tab Q4HP PRN PO 11/09/24 15:00 11/10/24 18:44 1 TAB Ondansetron HCl 4 mg Q4HP PRN IV 11/09/24 15:00 Enoxaparin Sodium 30 mg DAILY SC 11/10/24 10:00 UNV Acetaminophen 650 mg Q6HP PRN PO 11/09/24 15:00 11/10/24 06:29 650 MG Diagnostic Test (Pha) 1 strip ACHS 11/09/24 17:00 11/12/24 06:22 1 STRIP Insulin Human Regular ACHS SC 11/09/24 17:00 11/11/24 21:13 2 UNITS Dextrose 50 ml UD PRN IV 11/09/24 15:15 Enoxaparin Sodium 40 mg DAILY SC 11/10/24 10:00 11/11/24 09:49 40 MG Tamsulosin HCl 0.4 mg QPM PO 11/09/24 18:00 11/11/24 18:03 0.4 MG Finasteride 5 mg DAILY PO 11/10/24 10:00 11/11/24 09:49 5 MG Laboratory Results Laboratory Tests 11/10/24 06:36 Urinalysis Test 11/09/24 09:36 Urine Color Light-yellow (Yellow) Urine Clarity Clear (Clear) Urine pH 6.0 (5.0-9.0) Urine Specific [place] 1.015 (1.001-1.035) Urine Protein 1+ (Negative) H Urine Ketones Negative (Negative) Urine Blood Trace /uL (Negative) H Urine Nitrite Negative (Negative) Urine Bilirubin Negative (Negative) Urine Urobilinogen Normal mg/dL (Negative) Urine Leukocyte Esterase Negative /uL (Negative) Urine RBC 1 /hpf (0 - 3) Urine Microscopic WBC < 1 /HPF (0-3) Urine Squamous Epithelial Cells Few /hpf (<5) Urine Bacteria None seen /hpf (None Seen) Urine Hyaline Casts Few /lpf (0 - 2) Urine Mucus Few (None Seen) Urine Glucose Normal mg/dL (Normal) Labs and/or images reviewed: Labs reviewed by me, Image(s) reviewed by me Assessment/Plan Assessment/Plan Intractable left sided flank pain CKD 3 secondary to diabetic nephropathy, Nephrology consult by Dr Hernandes appreciated Patient wheelchair-bound Hypertension Uncontrolled Diabetes type 2 Diabetic neuropathy nephropathy vasculopathy History of CVA with right-sided deficits 2017, had rehab only for one month secondary to lack of insurance, patient is willing to go to rehab center now for improvement of the movements History of nephrolithiasis CKD BPH: Flomax History of partial right nephrectomy sec to large kidney stone History of kidney stones Left lower extremity swelling: DVT ruled out bilateral lower extremities CT abdomen pelvis without contrast negative Patient lives with his daughter Bonita [phone] who is at the bedside Plan discussed with: Patient My Orders Orders - COLE MARTIN MD Procedure Category Date Status Time Pt Request For Service PT 11/11/24 Logged 09:08 Communication Order ORDERS 11/11/24 Transmitted 09:31 Date of Service: Nov 12, 2024 Billing Provider: COLE MARTIN MD Common Visit Codes: [id number] INP/OBS CARE(HIGH) COLE MARTIN MD Nov 12, 2024 09:09
--- NOTE | 2024-11-12 09:22 | DVHDS2 ---
Discharge Summary Date of Admission Nov 09, 2024 at 14:47 Date of Discharge: Nov 12, 2024 Admitting Diagnosis Left flank pain Wounds: None Labs/Diagnostic Data: Laboratory Results Test 11/12/24 05:54 11/11/24 21:15 11/10/24 06:36 11/09/24 16:52 POC Glucose 128 mg/dl (70-106) SARS-CoV-2 Antigen (Rapid) Negative (NEGATIVE) White Blood Count 7.8 10^3/uL (4.4-10.8) Red Blood Count 4.92 10^6/uL (4.5-5.90) Hemoglobin 14.2 g/dL (13.5-17.5) Hematocrit 43.8 % (41.0-53.0) Mean Corpuscular Volume 89.0 fL (80.0-100.0) Mean Corpuscular Hemoglobin 28.9 pg (28.0-32.0) Mean Corpuscular Hemoglobin Concent 32.5 g/dL (32.0-36.0) Red Cell Distribution Width 15.1 % (11.8-14.3) Platelet Count 308 10^3/uL (140-450) Mean Platelet Volume 8.8 fL (6.9-10.8) Neutrophils (%) (Auto) 65.3 % (37.0-80.0) Lymphocytes (%) (Auto) 24.1 % (10.0-50.0) Monocytes (%) (Auto) 6.5 % (0.0-12.0) Eosinophils (%) (Auto) 3.4 % (0.0-7.0) Basophils (%) (Auto) 0.7 % (0.0-2.0) Neutrophils # (Auto) 5.1 10 ^3/uL (1.6-8.6) Lymphocytes # (Auto) 1.9 10 ^3/uL (0.4-5.4) Monocytes # (Auto) 0.5 10 ^3/uL (0-1.3) Eosinophils # (Auto) 0.3 10 ^3/uL (0-0.8) Basophils # (Auto) 0.1 10 ^3/uL (0-0.2) Nucleated Red Blood Cells 0.1 % Sodium Level 140 mmol/L (136-145) Potassium Level 4.3 mmol/L (3.5-5.1) Chloride Level 107 mmol/L (98-107) Carbon Dioxide Level 25 mmol/L (20-31) Anion Gap 8 (5-15) Blood Urea Nitrogen 24 mg/dL (9-23) Creatinine 1.68 mg/dL (0.700-1.30) Glomerular Filtration Rate Calc 45 mL/min (>90) BUN/Creatinine Ratio 14.3 (10.0-20.0) Serum Glucose 118 mg/dL (74-106) Calcium Level 9.4 mg/dL (8.7-10.4) Total Bilirubin 0.4 mg/dL (0.2-1.0) Aspartate Amino Transferase (AST) 16 U/L (13-40) Alanine Aminotransferase (ALT) 25 U/L (7-40) Alkaline Phosphatase 101 U/L (46-116) Total Protein 7.1 g/dL (5.7-8.2) Albumin 4.2 g/dL (3.2-4.8) Prostate Specific Antigen 3.33 ng/mL (0.0-4.0) Test 11/09/24 10:46 11/09/24 09:36 Hemoglobin A1c 7.5 % A1C (<5.7) B-Type Natriuretic Peptide 9.87 pg/mL (0-100) Urine Color Light-yellow (Yellow) Urine Clarity Clear (Clear) Urine pH 6.0 (5.0-9.0) Urine Specific [place] 1.015 (1.001-1.035) Urine Protein 1+ (Negative) Urine Ketones Negative (Negative) Urine Blood Trace /uL (Negative) Urine Nitrite Negative (Negative) Urine Bilirubin Negative (Negative) Urine Urobilinogen Normal mg/dL (Negative) Urine Leukocyte Esterase Negative /uL (Negative) Urine RBC 1 /hpf (0 - 3) Urine Microscopic WBC < 1 /HPF (0-3) Urine Squamous Epithelial Cells Few /hpf (<5) Urine Bacteria None seen /hpf (None Seen) Urine Hyaline Casts Few /lpf (0 - 2) Urine Mucus Few (None Seen) Urine Glucose Normal mg/dL (Normal) Other Laboratory Tests 11/10/24 06:36 Brief Hx & Hospital Course: 64-year-old male with a history of CVA 2018 with right-sided hemiplegia wheelchair-bound history of kidney stones and partial right nephrectomy secondary to large kidney stone came in complaining of left flank pain. CT abdomen pelvis without contrast was negative. Patient was uncontrolled diabetes and diabetic neuropathy nephropathy and vasculopathy. Seen by Nephrology for diabetic nephropathy found to have CKD three. Patient also has a history of BPH on Flomax he had a swelling of the left lower extremity DVT was ruled out bilateral lower extremities. Patient had only one month of rehab after the stroke in 2018 and family requesting rehab for physical therapy. Being discharged to group home facility. Consults/Reason for consult Nephrology Dr. Yanet Hernandes Operations or Procedures CT abdomen pelvis without contrast Condition at Discharge: Fair Final Diagnosis/Problems List Intractable left sided flank pain CKD 3 secondary to diabetic nephropathy, Nephrology consult by Dr Hernandes appreciated Patient wheelchair-bound Hypertension Uncontrolled Diabetes type 2 Diabetic neuropathy nephropathy vasculopathy History of CVA with right-sided deficits 2018, had rehab only for one month secondary to lack of insurance, patient is willing to go to rehab center now for improvement of the movements History of nephrolithiasis CKD BPH: Flomax History of partial right nephrectomy sec to large kidney stone History of kidney stones Left lower extremity swelling: DVT ruled out bilateral lower extremities CT abdomen pelvis without contrast negative Discharge Disposition: Nursing Home Facility Discharge Instruct/Medications Diet: Consistent carbohydrate Activity: Light activity Follow Up/Referral: Follow up with the halfway Medications: see list 39 (Time taken for discharge summary 39 minutes) Discharge Statement: "Patient was advised to return to the ER or call 911 if any headaches, dizziness, shortness of breath, chest pain, abdominal pain, bleeding, fevers, or worsening of medical condition. Patient was counseled about treatment plan, medications, possible side effects, patientverbalized understanding. All questions were answered to the best of my ability. This discharge took greater then 30 minutes in planning, reviewing documentation, counseling the patient, and discussing with other team members." ASSESSMENT ASSESSMENT Hospital Course Improved Assessment Intractable left sided flank pain CKD 3 secondary to diabetic nephropathy, Nephrology consult by Dr Hernandes appreciated Patient wheelchair-bound Hypertension Uncontrolled Diabetes type 2 Diabetic neuropathy nephropathy vasculopathy History of CVA with right-sided deficits 2018, had rehab only for one month secondary to lack of insurance, patient is willing to go to rehab center now for improvement of the movements History of nephrolithiasis CKD BPH: Flomax History of partial right nephrectomy sec to large kidney stone History of kidney stones Left lower extremity swelling: DVT ruled out bilateral lower extremities CT abdomen pelvis without contrast negative Date of Service: Nov 12, 2024 Billing Provider: COLE MARTIN MD Common Visit Codes: [id number] DISCH DAY >30min COLE MARTIN MD Nov 12, 2024 09:22
[2024-11-12 13:00] VITALS: BP 142/77; PULSE 74; RESP 18; TEMP 98.1; O2SAT 98
--- NOTE | 2024-11-13 15:04 | ECG ---
[facility] Test Date: 2024-11-09 Test Time: 09:41:40 Pat Name: JIN MARTINEZ Department: ER Room: 0214 B Gender: M Pattern Wheel Maker: ER : 1960 Requested By: GABE WOLFE Order Number: [id number] Reading MD: Grayson Preston Measurements Intervals [place] Rate: 80 P: 22 CT: 144 QRS: 23 QRSD: 90 T: 45 QT: 354 QTc: 409 Interpretive Statements Sinus rhythm RSR' in V1 or V2, right VCD or RVH Minimal ST elevation, anterior leads Baseline wander in lead(s) V3 Electronically Signed On 11-17-2024 16:45:24 PST by Grayson Preston Please click the below link to view image of tracing.
== END 2024-11-12 16:54 | DRG 683 ==
LOC: ER 09:22 → OVERFLOW 14:47 → CENTRAL 21:40
PROVIDERS: ADMIT Family Medicine; ATTEND Family Medicine
DX: N17.9 Acute kidney failure, unspecified (principal); I69.351 Hemiplegia and hemiparesis following cerebral infarction affecting right dominant side; N13.8 Other obstructive and reflux uropathy; N40.1 Benign prostatic hyperplasia with lower urinary tract symptoms; I95.9 Hypotension, unspecified; Z20.822 Contact with and (suspected) exposure to COVID-19; E11.65 Type 2 diabetes mellitus with hyperglycemia; E11.22 Type 2 diabetes mellitus with diabetic chronic kidney disease; N18.31 Chronic kidney disease, stage 3a; I12.9 Hypertensive chronic kidney disease with stage 1 through stage 4 chronic kidney disease, or unspecified chronic kidney disease; E11.319 Type 2 diabetes mellitus with unspecified diabetic retinopathy without macular edema; E11.40 Type 2 diabetes mellitus with diabetic neuropathy, unspecified; Z90.5 Acquired absence of kidney; Z83.3 Family history of diabetes mellitus; Z82.49 Family history of ischemic heart disease and other diseases of the circulatory system; Z87.442 Personal history of urinary calculi; Z99.3 Dependence on wheelchair; Z79.4 Long term (current) use of insulin; Z79.899 Other long term (current) drug therapy
CPT/HCPCS: 36415; 71045; 74176; 76775; 80048; 80053; 81001; 82962; 83036; 83880; 84153; 85025; 87426; 93005; 93971; 97116; 97163; 97530; G0378; J1815

== ENCOUNTER → 2025-02-05 | Outpatient (CLI) | payer MEDICARE, MEDICAID ==
[~2025-02-05] MED LIST changes: -ALFU1TAB15 PO; -CETI-83 OR
[2025-02-05 09:32] LABS: Urine Bacteria None Seen /hpf (None Seen)
[2025-02-05 09:41] LABS: Basophils # (auto) 0.1 10 ^3/uL (0-0.2); Basophils % (auto) 1.1 % (0.0-2.0); Eosinophils # (auto) 0.2 10 ^3/uL (0-0.8); Eosinophils % (auto) 2.8 % (0.0-7.0); Hematocrit 43.5 % (41.0-53.0); Hemoglobin 14.6 g/dL (13.5-17.5); Lymphocytes # (auto) 1.8 10 ^3/uL (0.4-5.4); Lymphocytes % (auto) 22.7 % (10.0-50.0); Mean Corpuscular Hemoglobin 29.6 pg (28.0-32.0); Mean Corpuscular Hgb Conc. 33.5 g/dL (32.0-36.0); Mean Corpuscular Volume 88.4 fL (80.0-100.0); Monocytes # (auto) 0.6 10 ^3/uL (0-1.3); Monocytes % (auto) 7.1 % (0.0-12.0); Neutrophils # (auto) 5.1 10 ^3/uL (1.6-8.6); Neutrophils % (auto) 66.3 % (37.0-80.0); Nucleated Red Blood Cells % 0.1 %; Platelet Count (auto) 273 10^3/uL (140-450); Red Blood Cells 4.92 10^6/uL (4.5-5.90); White Blood Cell 7.7 10^3/uL (4.4-10.8)
[2025-02-05 10:03] LABS: Chloride 104 mmol/L (98-107); Potassium 5.1 mmol/L (3.5-5.1); Sodium 139 mmol/L (136-145)
[2025-02-05 10:04] LABS: Anion Gap 6 (5-15); Carbon Dioxide 29 mmol/L (20-31)
[2025-02-05 10:09] LABS: BUN/Creatinine Ratio 13.8 (10.0-20.0); Blood Urea Nitrogen 25 mg/dL (9-23); Glucose 180 mg/dL (74-106)
[2025-02-05 10:11] LABS: Phosphorus 3.1 mg/dL (2.4-5.1); Urine Blood TRACE /uL (Negative); Urine Clarity Clear (Clear); Urine Color Light-Yellow (Yellow); Urine Protein, UAD 1+ (Negative); Urine Specific Gravity 1.013 (1.001-1.035); Urine Squamous Epithelial Cell FEW /hpf (<5); Urine Urobilinogen Normal (Negative); Urine WBC 1 /HPF (0-3)
[2025-02-05 10:22] LABS: Uric Acid 6.9 mg/dL (3.7-9.2)
[2025-02-05 10:56] LABS: Protein, Urine 99.1 mg/dL (1-14)
[2025-02-05 10:58] LABS: Creatinine, Urine 62.97 mg/dL (30.0-125.0)
[2025-02-05 10:59] LABS: Creatinine, Urine 61.45 mg/dL (30.0-125.0); Urine Protein/Creatinine Ratio 1.61
== END | disposition home or self-care (01) ==
LOC: LAB 09:20
PROVIDERS: ATTEND Nurse Practitioner Gerontology
DX: E11.22 Type 2 diabetes mellitus with diabetic chronic kidney disease (principal); I12.9 Hypertensive chronic kidney disease with stage 1 through stage 4 chronic kidney disease, or unspecified chronic kidney disease; N18.31 Chronic kidney disease, stage 3a; E11.21 Type 2 diabetes mellitus with diabetic nephropathy; N39.0 Urinary tract infection, site not specified; E55.9 Vitamin D deficiency, unspecified; R80.9 Proteinuria, unspecified; Z86.79 Personal history of other diseases of the circulatory system
CPT/HCPCS: 36415; 80048; 81001; 82043; 82306; 82570; 83970; 84100; 84156; 84550; 85025

== ENCOUNTER → 2025-07-04 | Outpatient (CLI) | payer MEDICARE, MEDICAID ==
[2025-07-04 09:15] LABS: Hematocrit 45.4 % (41.0-53.0); Hemoglobin 14.9 g/dL (13.5-17.5); Mean Corpuscular Hemoglobin 28.8 pg (28.0-32.0); Mean Corpuscular Volume 87.9 fL (80.0-100.0); Nucleated Red Blood Cells % 0.0 %
[2025-07-04 10:07] LABS: Urine Protein, UAD 1+ (Negative)
[2025-07-04 10:57] LABS: Calcium 9.5 mg/dL (8.7-10.4); Chloride 103 mmol/L (98-107); Potassium 4.7 mmol/L (3.5-5.1); Sodium 137 mmol/L (136-145)
[2025-07-04 10:58] LABS: Anion Gap 9 (5-15); Carbon Dioxide 25 mmol/L (20-31)
[2025-07-04 11:02] LABS: Uric Acid 7.7 mg/dL (3.7-9.2)
[2025-07-04 11:03] LABS: BUN/Creatinine Ratio 16.5 (10.0-20.0)
[2025-07-04 11:29] LABS: Blood Urea Nitrogen 31 mg/dL (9-23); Glucose 170 mg/dL (74-106)
[2025-07-04 13:17] LABS: Protein, Urine 86.9 mg/dL (1-14)
== END | disposition home or self-care (01) ==
LOC: LAB 08:28
PROVIDERS: ATTEND Internal Medicine Nephrology
DX: E11.22 Type 2 diabetes mellitus with diabetic chronic kidney disease (principal); N18.31 Chronic kidney disease, stage 3a; N40.0 Benign prostatic hyperplasia without lower urinary tract symptoms; N39.0 Urinary tract infection, site not specified; E55.9 Vitamin D deficiency, unspecified; E11.21 Type 2 diabetes mellitus with diabetic nephropathy; R00.9 Unspecified abnormalities of heart beat
CPT/HCPCS: 36415; 80048; 81001; 82043; 82306; 82570; 83036; 83970; 84100; 84156; 84550; 85025; 87086